=== PATIENT | female | born 1985 | race Caucasian/White ===

== ENCOUNTER 2016-10-04 11:40 | Emergency (ER) | payer OTHER ==
[~2016-10-04 11:40] MED LIST: GABAPENTIN400 MG PO; REMERON15 MG PO; SEROQUEL PO
== END 2016-10-04 12:31 | disposition home or self-care (01) ==
LOC: CED 11:40
DX: J06.9 Acute upper respiratory infection, unspecified (principal); F17.210 Nicotine dependence, cigarettes, uncomplicated; Z20.818 Contact with and (suspected) exposure to other bacterial communicable diseases
CPT/HCPCS: 99282